=== PATIENT | male | born 1980 | race African-American/Black ===

== ENCOUNTER 2021-11-15 13:40 | Inpatient (IN) | payer MEDICAID, OTHER ==
[2021-11-15] VITALS (8 sets, daily range): BP systolic 81–115; BP diastolic 27–73
[~2021-11-15] VITALS: Ht 170.2 cm; Wt 54.6 kg
[2021-11-15] MEDS ORDERED: ACETAMINOPHEN 325MG TABLET PO STA (14:26)
[2021-11-15] MEDS ORDERED: SODIUM CHLORIDE 0.9% 1000ML BAG (SEPSIS BOLUS) IV ONE (14:30)
[2021-11-15] MEDS ORDERED: ONDANSETRON HCL 4MG/2ML INJ IV ONE (14:30)
[2021-11-15] MEDS ORDERED: METRONIDAZOLE 500 MG PREMIX 100 ML IV ONE (14:45)
[2021-11-15] MEDS ORDERED: NYSTATIN 100,000 UNITS/ML 5ML UDC SSW ONE (14:45)
[2021-11-15 15:38] LABS: HEMATOCRIT. 30.5 % (42.0-52.0); HEMOGLOBIN. 10.3 g/dL (14.0-18.0); MEAN CORPUSCULAR HEMOGLOBIN 23.9 pg (28.0-32.0); MEAN CORPUSCULAR VOLUME 70.9 fL (80.0-94.0); MEAN PLATELET VOLUME 6.7 fl (7.4-10.4); PLATELET 334 x1000/uL (130-400)
[2021-11-15 15:40] LABS: CHLORIDE 93 mEq/L (98-107)
[2021-11-15] MEDS ORDERED: ACETAMINOPHEN 500MG TABLET PO NR (15:45)
[2021-11-15 15:50] LABS: PROTHROMBIN TIME 10.7 sec (9.6-11.0)
[2021-11-15 16:21] LABS: CLARITY URINE CLEAR (CLEAR); COLOR URINE YELLOW (YELLOW); KETONES URINE NEGATIVE (NEGATIVE); LEUKOCYTE ESTERASE URINE NEGATIVE (NEGATIVE); NITRITE URINE NEGATIVE (NEGATIVE); OCCULT BLOOD URINE 2+ (NEGATIVE); PH URINE 6.5 (4.5-8.0); PROTEIN URINE 1+ (NEGATIVE); SPECIFIC GRAVITY URINE 1.009 (1.005-1.030); UROBILINOGEN URINE 0.2 E.U./dL (0.2-1.0)
[2021-11-15] MEDS ORDERED: MAGNESIUM 1 G PREMIX 100 ML IV ONE (16:30)
[2021-11-15] MEDS ORDERED: KCL 20MEQ/100ML PREMIX 100 ML IV ONE (16:30)
[2021-11-15] MEDS ORDERED: POTASSIUM CHLORIDE 20MEQ TABLET SR PO ONE (16:30)
[2021-11-15 17:22] LABS: PLATELET ESTIMATE NORMAL
[2021-11-15] MEDS ORDERED: PIPERACILLIN/TAZ 3.375G PREMIX 50 ML IV ONE (18:00)
[2021-11-15] MEDS ORDERED: VANCOMYCIN 1G PREMIX 200 ML IV ONE (18:00)
[2021-11-15] MEDS ORDERED: HYDROCODONE/ACETAMINOPHEN 5/325MG TABLET PO PRN (18:15)
[2021-11-15] MEDS: SODIUM CHLORIDE 0.9% 1,000 ML IV SCH (18:15)
[2021-11-15] MEDS ORDERED: CLONIDINE 0.1MG TABLET PO PRN (18:15)
[2021-11-15] MEDS ORDERED: IPRATROPIUM/ALBUTEROL 0.5-3(2.5)MG/3ML NEB HHN PRN (18:15)
[2021-11-15] MEDS ORDERED: ONDANSETRON HCL 4MG/2ML INJ IV PRN (18:15)
[2021-11-15] MEDS ORDERED: ACETAMINOPHEN 325MG TABLET PO PRN ×2 (18:15)
[2021-11-15] MEDS ORDERED: NALOXONE HCL 0.4MG/ML VIAL IV PRN (18:30)
[2021-11-15] MEDS ORDERED: DEXT 5%/0.45% NACL 1000ML 1,000 ML IV ONE (18:45)
[2021-11-15] MEDS ORDERED: SODIUM CHLORIDE 0.9% 1,000 ML IV ONE (18:45)
[2021-11-15] MEDS ORDERED: NOREPINEPHRINE 8MG/250ML PMX 250 ML IV ONE (18:45)
[2021-11-15] MEDS ORDERED: DOPAMINE 400MG/250ML PREMIX 250 ML IV PRN (19:30)
[2021-11-15 20:47] LABS: PHOSPHORUS 2.4 mg/dL (2.5-4.9)
[2021-11-16] VITALS (80 sets, daily range): BP systolic 64–152; BP diastolic 21–91
[2021-11-16] MEDS: DOPAMINE 400MG/250ML PREMIX 250 ML IV PRN ×2 (02:40→17:06)
[2021-11-16] MEDS: SODIUM CHLORIDE 0.9% 1,000 ML IV SCH ×2 (02:42→13:29)
[2021-11-16 04:51] LABS: HEMATOCRIT. 29.5 % (42.0-52.0); HEMOGLOBIN. 9.7 g/dL (14.0-18.0); MEAN CORPUSCULAR HEMOGLOBIN 23.6 pg (28.0-32.0); MEAN CORPUSCULAR VOLUME 71.9 fL (80.0-94.0); MEAN PLATELET VOLUME 6.5 fl (7.4-10.4); PLATELET 275 x1000/uL (130-400)
[2021-11-16] MEDS ORDERED: LIDOCAINE HCL/PF 1% 10 MG/ML 5ML VIAL ONE (07:57)
[2021-11-16 09:47] LABS: *AMPHETAMINES SCREEN URINE NEGATIVE (NEGATIVE); *BARBITURATES SCREEN URINE NEGATIVE (NEGATIVE); *BENZODIAZEPINES SCREEN URINE NEGATIVE (NEGATIVE); *COCAINE SCREEN URINE NEGATIVE (NEGATIVE); CANNABINOID URINE SCREEN NEGATIVE (NEGATIVE); METHADONE URINE SCREEN NEGATIVE (NEGATIVE); OPIATES URINE SCREEN NEGATIVE (NEGATIVE); PHENCYCLIDINE URINE SCREEN NEGATIVE (NEGATIVE)
[2021-11-16] MEDS: NOREPINEPHRINE 32 MG in DEXT 5% WATER 218 ML IV PRN (11:12)
[2021-11-16] MEDS: POTASSIUM CHLORIDE INJ 40 MEQ in DEXT 5% WATER 250 ML IV SCH ×3 (11:16→21:50)
[2021-11-16 12:18] LABS: PLATELET ESTIMATE NORMAL
[2021-11-16 13:42] LABS: T4 FREE 0.99 ng/dL (0.76-1.46)
[2021-11-16] MEDS: POTASSIUM CHLORIDE INJ 40 MEQ in SODIUM CHLORIDE 0.9% 1,000 ML IV SCH (14:45)
[2021-11-16 19:56] LABS: TOTAL IRON BINDING CAPACITY 147 ug/dL (250-450)
[2021-11-16 20:29] LABS: FERRITIN 632 ng/mL (22-322)
[2021-11-16 20:41] LABS: VITAMIN B12 SERUM 828 pg/mL (211-911)
[2021-11-16] MEDS ORDERED: CEFTRIAXONE 1 G PREMIX 50 ML IV SCH (23:30)
[2021-11-17] VITALS (96 sets, daily range): BP systolic 77–153; BP diastolic 28–106
[2021-11-17] MEDS: CEFTRIAXONE 1,000 MG in DEXTROSE 5% WATER 50 ML IV SCH ×2 (02:10→23:38)
[2021-11-17] MEDS: SULFAMETHOXAZOLE/TRIMETHOPRIM 800/160MG TABLET PO SCH ×4 (02:10→23:38)
[2021-11-17] MEDS: NOREPINEPHRINE 32 MG in DEXT 5% WATER 218 ML IV PRN (05:32)
[2021-11-17 06:23] LABS: BASOPHILS % 0.5 % (0.0-2.0); EOSINOPHILS % 0.7 % (0.0-5.0); HEMATOCRIT. 29.1 % (42.0-52.0); HEMOGLOBIN. 9.7 g/dL (14.0-18.0); LYMPHOCYTES % 7.1 % (20.0-50.0); MEAN CORPUSCULAR HEMOGLOBIN 23.9 pg (28.0-32.0); MEAN CORPUSCULAR VOLUME 71.6 fL (80.0-94.0); MEAN PLATELET VOLUME 6.6 fl (7.4-10.4); MONOCYTES % 3.1 % (2.0-8.0); NEUTROPHILS % 88.6 % (40.0-76.0); PLATELET 251 x1000/uL (130-400); RED BLOOD CELL COUNT 4.06 mill/uL (4.7-6.1); RED CELL DISTRIBUTION WIDTH 17.9 % (11.6-14.6)
[2021-11-17 06:38] LABS: CHLORIDE 109 mEq/L (98-107)
[2021-11-17 07:58] LABS: BG BASE EXCESS -6.9 mmol/L (-2.0-2.0); BG CARBOXYHEMOGLOBIN 0.3 % (0.5-1.5); BG DEOXYHEMOGLOBIN 3.4 % (0.0-5.0); BG FRACTION INSPIRED OXYGEN 21; BG HCO3 ACT 17.4 mmol/L (22.0-26.0); BG METHEMOGLOBIN 0.3 % (0.0-1.5); BG OXYGEN SATURATION 96.6 % (92.0-98.5); BG PCO2 30.9 mmHg (35.0-45.0); BG PH 7.368 (7.350-7.450); BG PO2 93.6 mmHg (75.0-100.0); BG SAMPLE SITE RIGHT RADIAL; BG TOTAL HEMOGLOBIN 10.7 g/dL (12.0-18.0); BG VENT MODE ROOM AIR
[2021-11-17] MEDS: POTASSIUM CHLORIDE INJ 40 MEQ in DEXT 5% WATER 250 ML IV SCH ×2 (08:23→20:33)
[2021-11-17 09:10] LABS: ABSOLUTE MONOCYTES 0.1 x10E3/uL (0.1-0.9); ABSOLUTE NEUTROPHILS 5.9 x10E3/uL (1.4-7.0); BASOPHILS 0 % (Not Estab.); HEMATOCRIT 30.3 % (37.5-51.0); HEMATOLOGY COMMENT Note: (.); HEMOGLOBIN 9.6 g/dL (13.0-17.7); IMMATURE GRANULOCYTES 1 % (Not Estab.); IMMATURE GRANULOCYTES ABSOLUTE 0.1 x10E3/uL (0.0-0.1); LYMPHOCYTES 14 % (Not Estab.); MEAN CORPUSCULAR HEMOGLOBIN 23.5 pg (26.6-33.0); MEAN CORPUSCULAR HGB CONC. 31.7 g/dL (31.5-35.7); MEAN CORPUSCULAR VOLUME 74 fL (79-97); MONOCYTES 2 % (Not Estab.); NEUTROPHILS 83 % (Not Estab.); PLATELETS 295 x10E3/uL (150-450); RBC 4.08 x10E6/uL (4.14-5.80); WBC 7.1 x10E3/uL (3.4-10.8)
[2021-11-17] MEDS: DOPAMINE 400MG/250ML PREMIX 250 ML IV PRN ×2 (10:00→23:38)
[2021-11-17 10:11] LABS: % CD 3 POS. LYMPHOCYTES 53.1 % (57.5-86.2); % CD 4 POS. LYMPHOCYTES 1.2 % (30.8-58.5); % CD 8 POS. LYMPH 49.2 % (12.0-35.5); ABSOLUTE CD 3 531 /uL (622-2402); ABSOLUTE CD 4 HELPER 12 /uL (359-1519); ABSOLUTE CD 8 SUPPRESSOR 492 /uL (109-897); CD4/CD8 RATIO 0.02 (0.92-3.72)
[2021-11-17] MEDS ORDERED: POTASSIUM PHOS,M-BASIC-D-BASIC 30 MMOL in SODIUM CHLORIDE 0.9% 500 ML IV NR (11:00)
[2021-11-17] MEDS: POTASSIUM CHLORIDE INJ 40 MEQ in SODIUM CHLORIDE 0.9% 1,000 ML IV SCH ×2 (11:20→20:33)
[2021-11-17] MEDS ORDERED: NITA500T2 MT (11:27)
[2021-11-17] MEDS: AZITHROMYCIN 600 MG TABLET PO SCH (13:29)
[2021-11-18] VITALS (79 sets, daily range): BP systolic 77–166; BP diastolic 34–120
[2021-11-18 04:46] LABS: CHLORIDE 116 mEq/L (98-107)
[2021-11-18 04:53] LABS: BASOPHILS % 0.4 % (0.0-2.0); EOSINOPHILS % 2.5 % (0.0-5.0); HEMATOCRIT. 29.8 % (42.0-52.0); HEMOGLOBIN. 9.7 g/dL (14.0-18.0); LYMPHOCYTES % 9.6 % (20.0-50.0); MEAN CORPUSCULAR HEMOGLOBIN 23.7 pg (28.0-32.0); MEAN CORPUSCULAR VOLUME 72.7 fL (80.0-94.0); MEAN PLATELET VOLUME 6.4 fl (7.4-10.4); MONOCYTES % 2.9 % (2.0-8.0); NEUTROPHILS % 84.6 % (40.0-76.0); PLATELET 250 x1000/uL (130-400); RED CELL DISTRIBUTION WIDTH 18.2 % (11.6-14.6)
[2021-11-18 04:56] LABS: AMYLASE 208 IU/L (25-115); PHOSPHORUS 2.6 mg/dL (2.5-4.9)
[2021-11-18] MEDS: SULFAMETHOXAZOLE/TRIMETHOPRIM 800/160MG TABLET PO SCH ×3 (06:37→22:26)
[2021-11-18] MEDS: POTASSIUM CHLORIDE INJ 40 MEQ in SODIUM CHLORIDE 0.9% 1,000 ML IV SCH (06:39)
[2021-11-18] MEDS: SODIUM CHL 0.9% + KCL 20MEQ/L 1,000 ML IV SCH ×2 (10:55→20:50)
[2021-11-18] MEDS: POTASSIUM CHLORIDE 20MEQ TABLET SR PO SCH (10:59)
[2021-11-18] MEDS ORDERED: MAGNESIUM GLUCONATE 500MG TABLET PO SCH (11:00)
[2021-11-18] MEDS: NITAZOXANIDE 500 MG PO SCH ×2 (15:00→22:26)
[2021-11-18] MEDS: NOREPINEPHRINE 32 MG in DEXT 5% WATER 218 ML IV PRN (17:03)
[2021-11-18] MEDS: CEFTRIAXONE 1,000 MG in DEXTROSE 5% WATER 50 ML IV SCH (22:51)
[2021-11-19] VITALS (78 sets, daily range): BP systolic 80–151; BP diastolic 39–102
[2021-11-19 04:33] LABS: CHLORIDE 108 mEq/L (98-107)
[2021-11-19 04:34] LABS: BASOPHILS % 0.4 % (0.0-2.0); EOSINOPHILS % 2.3 % (0.0-5.0); HEMATOCRIT. 27.8 % (42.0-52.0); HEMOGLOBIN. 9.3 g/dL (14.0-18.0); LYMPHOCYTES % 11.5 % (20.0-50.0); MEAN CORPUSCULAR HEMOGLOBIN 23.9 pg (28.0-32.0); MEAN CORPUSCULAR VOLUME 71.5 fL (80.0-94.0); MEAN PLATELET VOLUME 6.3 fl (7.4-10.4); MONOCYTES % 5.3 % (2.0-8.0); NEUTROPHILS % 80.5 % (40.0-76.0); PLATELET 278 x1000/uL (130-400); RED BLOOD CELL COUNT 3.89 mill/uL (4.7-6.1); RED CELL DISTRIBUTION WIDTH 18.6 % (11.6-14.6)
[2021-11-19 04:49] LABS: AMYLASE 146 IU/L (25-115); PHOSPHORUS 2.5 mg/dL (2.5-4.9)
[2021-11-19] MEDS: SODIUM CHL 0.9% + KCL 20MEQ/L 1,000 ML IV SCH ×2 (05:28→15:44)
[2021-11-19] MEDS: SULFAMETHOXAZOLE/TRIMETHOPRIM 800/160MG TABLET PO SCH ×3 (08:30→23:25)
[2021-11-19] MEDS: POTASSIUM CHLORIDE 20MEQ TABLET SR PO SCH (08:37)
[2021-11-19] MEDS: NITAZOXANIDE 500 MG PO SCH ×2 (08:37→20:29)
[2021-11-19] MEDS: MIDODRINE HCL 5MG TABLET PO SCH ×2 (12:25→17:49)
[2021-11-19] MEDS ORDERED: MAGNESIUM 2 G PREMIX 50 ML IV NR (15:00)
[2021-11-19] MEDS ORDERED: POTASSIUM CHLORIDE 20MEQ TABLET SR PO NR (17:00)
[2021-11-19] MEDS: NOREPINEPHRINE 32 MG in DEXT 5% WATER 218 ML IV PRN (17:52)
[2021-11-19] MEDS: CEFTRIAXONE 1,000 MG in DEXTROSE 5% WATER 50 ML IV SCH (23:25)
[2021-11-20] VITALS (97 sets, daily range): BP systolic 65–108; BP diastolic 35–77
[2021-11-20] MEDS: SODIUM CHL 0.9% + KCL 20MEQ/L 1,000 ML IV SCH ×3 (02:20→22:57)
[2021-11-20 05:04] LABS: BASOPHILS % 1.1 % (0.0-2.0); EOSINOPHILS % 6.8 % (0.0-5.0); HEMATOCRIT. 25.5 % (42.0-52.0); HEMOGLOBIN. 8.6 g/dL (14.0-18.0); LYMPHOCYTES % 19.2 % (20.0-50.0); MEAN CORPUSCULAR VOLUME 71.5 fL (80.0-94.0); MEAN PLATELET VOLUME 6.1 fl (7.4-10.4); MONOCYTES % 7.8 % (2.0-8.0); NEUTROPHILS % 65.1 % (40.0-76.0); PLATELET 252 x1000/uL (130-400); RED BLOOD CELL COUNT 3.56 mill/uL (4.7-6.1); RED CELL DISTRIBUTION WIDTH 18.9 % (11.6-14.6)
[2021-11-20 05:22] LABS: CHLORIDE 110 mEq/L (98-107)
[2021-11-20 05:31] LABS: AMYLASE 156 IU/L (25-115); PHOSPHORUS 2.4 mg/dL (2.5-4.9)
[2021-11-20] MEDS: SULFAMETHOXAZOLE/TRIMETHOPRIM 800/160MG TABLET PO SCH ×3 (08:00→22:57)
[2021-11-20] MEDS: MIDODRINE HCL 5MG TABLET PO SCH ×2 (08:01→16:15)
[2021-11-20] MEDS: POTASSIUM CHLORIDE 20MEQ TABLET SR PO SCH (08:01)
[2021-11-20] MEDS: NITAZOXANIDE 500 MG PO SCH ×2 (08:01→21:48)
[2021-11-20] MEDS: DOCUSATE SODIUM 100MG CAPSULE PO PRN (16:16)
[2021-11-20] MEDS ORDERED: POTASSIUM-SODIUM PHOSPHATE POWDER PACKET PO SCH (17:00)
[2021-11-20] MEDS ORDERED: MAGNESIUM 2 G PREMIX 50 ML IV NR (17:30)
[2021-11-20] MEDS: CEFTRIAXONE 1,000 MG in DEXTROSE 5% WATER 50 ML IV SCH (22:57)
[2021-11-21] VITALS (95 sets, daily range): BP systolic 70–140; BP diastolic 40–88
[2021-11-21 05:13] LABS: BASOPHILS % 1.4 % (0.0-2.0); EOSINOPHILS % 7.6 % (0.0-5.0); HEMATOCRIT. 23.4 % (42.0-52.0); HEMOGLOBIN. 7.7 g/dL (14.0-18.0); LYMPHOCYTES % 20.8 % (20.0-50.0); MEAN CORPUSCULAR HEMOGLOBIN 23.6 pg (28.0-32.0); MEAN CORPUSCULAR VOLUME 71.8 fL (80.0-94.0); MEAN PLATELET VOLUME 6.6 fl (7.4-10.4); MONOCYTES % 9.3 % (2.0-8.0); NEUTROPHILS % 60.9 % (40.0-76.0); PLATELET 269 x1000/uL (130-400); RED BLOOD CELL COUNT 3.26 mill/uL (4.7-6.1); RED CELL DISTRIBUTION WIDTH 18.7 % (11.6-14.6)
[2021-11-21 05:32] LABS: CHLORIDE 116 mEq/L (98-107)
[2021-11-21 05:44] LABS: AMYLASE 231 IU/L (25-115); PHOSPHORUS 1.4 mg/dL (2.5-4.9)
[2021-11-21] MEDS: SULFAMETHOXAZOLE/TRIMETHOPRIM 800/160MG TABLET PO SCH ×3 (06:53→23:48)
[2021-11-21] MEDS: NITAZOXANIDE 500 MG PO SCH ×2 (08:03→20:00)
[2021-11-21] MEDS: MIDODRINE HCL 5MG TABLET PO SCH ×2 (08:03→17:31)
[2021-11-21] MEDS: SODIUM CHLORIDE 0.9% 1,000 ML IV SCH ×2 (08:33→23:48)
[2021-11-21] MEDS ORDERED: SODIUM PHOS,M-BASIC-D-BASIC 20 MM in DEXT 5% WATER 243.3333 ML IV NR (10:00)
[2021-11-21] MEDS ORDERED: SODIUM POLYSTYRENE SULFONATE 15 G/60 ML BOT PO NR (10:45)
[2021-11-21] MEDS ORDERED: DIATR MEGLU/DIATRIZOATE SOLN 30ML PO NR (20:00)
[2021-11-22] VITALS (77 sets, daily range): BP systolic 57–159; BP diastolic 22–91
[2021-11-22 05:21] LABS: EOSINOPHILS % 9.4 % (0.0-5.0); HEMATOCRIT. 24.4 % (42.0-52.0); LYMPHOCYTES % 19.9 % (20.0-50.0); MEAN CORPUSCULAR HEMOGLOBIN 23.8 pg (28.0-32.0); MEAN CORPUSCULAR VOLUME 72.5 fL (80.0-94.0); MEAN PLATELET VOLUME 6.5 fl (7.4-10.4); MONOCYTES % 9.5 % (2.0-8.0); NEUTROPHILS % 58.2 % (40.0-76.0); PLATELET 294 x1000/uL (130-400); RED BLOOD CELL COUNT 3.37 mill/uL (4.7-6.1)
[2021-11-22 06:39] LABS: CHLORIDE 111 mEq/L (98-107)
[2021-11-22 06:59] LABS: AMYLASE 439 IU/L (25-115); PHOSPHORUS 2.2 mg/dL (2.5-4.9)
[2021-11-22] MEDS: MIDODRINE HCL 5MG TABLET PO SCH ×2 (08:43→16:50)
[2021-11-22] MEDS: SULFAMETHOXAZOLE/TRIMETHOPRIM 800/160MG TABLET PO SCH ×3 (08:43→22:21)
[2021-11-22] MEDS: NITAZOXANIDE 500 MG PO SCH ×2 (08:44→20:03)
[2021-11-22] MEDS ORDERED: MAGNESIUM 2 G PREMIX 50 ML IV ONE (08:45)
[2021-11-22] MEDS ORDERED: MAGNESIUM 2 G PREMIX 50 ML IV NR (09:00)
[2021-11-22] MEDS ORDERED: MIDODRINE HCL 5MG TABLET PO NR ×2 (09:00)
[2021-11-22] MEDS ORDERED: SODIUM PHOS,M-BASIC-D-BASIC 15 MM in DEXT 5% WATER 245 ML IV NR (10:00)
[2021-11-22] MEDS ORDERED: SODIUM CHLORIDE 0.9% 500 ML IV ONE (12:30)
[2021-11-22] MEDS: NOREPINEPHRINE 32 MG in DEXT 5% WATER 218 ML IV PRN (12:58)
[2021-11-23] VITALS (90 sets, daily range): BP systolic 67–123; BP diastolic 35–87
[2021-11-23 04:25] LABS: BASOPHILS % 0.2 % (0.0-2.0); EOSINOPHILS % 8.8 % (0.0-5.0); HEMATOCRIT. 23.4 % (42.0-52.0); HEMOGLOBIN. 7.6 g/dL (14.0-18.0); LYMPHOCYTES % 21.3 % (20.0-50.0); MEAN CORPUSCULAR HEMOGLOBIN 23.9 pg (28.0-32.0); MEAN CORPUSCULAR VOLUME 73.5 fL (80.0-94.0); MEAN PLATELET VOLUME 6.4 fl (7.4-10.4); MONOCYTES % 11.2 % (2.0-8.0); NEUTROPHILS % 58.5 % (40.0-76.0); PLATELET 287 x1000/uL (130-400); RED BLOOD CELL COUNT 3.18 mill/uL (4.7-6.1); RED CELL DISTRIBUTION WIDTH 19.5 % (11.6-14.6)
[2021-11-23 04:33] LABS: CHLORIDE 113 mEq/L (98-107)
[2021-11-23 04:46] LABS: AMYLASE 506 IU/L (25-115); PHOSPHORUS 2.6 mg/dL (2.5-4.9)
[2021-11-23] MEDS: SULFAMETHOXAZOLE/TRIMETHOPRIM 800/160MG TABLET PO SCH ×3 (06:31→23:51)
[2021-11-23] MEDS: NITAZOXANIDE 500 MG PO SCH ×2 (08:37→21:00)
[2021-11-23] MEDS: MIDODRINE HCL 5MG TABLET PO SCH ×2 (08:38→16:27)
[2021-11-23] MEDS: SODIUM CHLORIDE 0.9% 1,000 ML IV SCH ×2 (15:06)
[2021-11-24] VITALS (86 sets, daily range): BP systolic 58–122; BP diastolic 24–66
[2021-11-24 05:50] LABS: BASOPHILS % 2.9 % (0.0-2.0); EOSINOPHILS % 6.6 % (0.0-5.0); HEMATOCRIT. 22.7 % (42.0-52.0); HEMOGLOBIN. 7.6 g/dL (14.0-18.0); LYMPHOCYTES % 11.1 % (20.0-50.0); MEAN CORPUSCULAR HEMOGLOBIN 24.2 pg (28.0-32.0); MEAN CORPUSCULAR VOLUME 72.4 fL (80.0-94.0); MEAN PLATELET VOLUME 6.7 fl (7.4-10.4); MONOCYTES % 10.6 % (2.0-8.0); NEUTROPHILS % 68.8 % (40.0-76.0); PLATELET 309 x1000/uL (130-400); RED BLOOD CELL COUNT 3.14 mill/uL (4.7-6.1); RED CELL DISTRIBUTION WIDTH 19.2 % (11.6-14.6)
[2021-11-24 06:05] LABS: CHLORIDE 110 mEq/L (98-107)
[2021-11-24 06:30] LABS: AMYLASE 610 IU/L (25-115); PHOSPHORUS 2.5 mg/dL (2.5-4.9)
[2021-11-24] MEDS: SULFAMETHOXAZOLE/TRIMETHOPRIM 800/160MG TABLET PO SCH ×3 (07:46→23:55)
[2021-11-24] MEDS: AZITHROMYCIN 600 MG TABLET PO SCH (08:03)
[2021-11-24] MEDS: MIDODRINE HCL 5MG TABLET PO SCH ×3 (08:04→16:55)
[2021-11-24] MEDS: NITAZOXANIDE 500 MG PO SCH ×2 (08:04→20:45)
[2021-11-24] MEDS: SODIUM CHLORIDE 0.9% 1,000 ML IV SCH ×2 (08:50→23:55)
[2021-11-24] MEDS ORDERED: MAGNESIUM 2 G PREMIX 50 ML IV SCH (10:00)
[2021-11-25] VITALS (15 sets, daily range): BP systolic 84–108; BP diastolic 33–72
[2021-11-25 08:03] LABS: BASOPHILS % 3.5 % (0.0-2.0); HEMOGLOBIN. 7.8 g/dL (14.0-18.0); LYMPHOCYTES % 22.6 % (20.0-50.0); MEAN CORPUSCULAR HEMOGLOBIN 24.9 pg (28.0-32.0); MEAN CORPUSCULAR VOLUME 72.8 fL (80.0-94.0); MEAN PLATELET VOLUME 6.6 fl (7.4-10.4); MONOCYTES % 13.6 % (2.0-8.0); NEUTROPHILS % 54.3 % (40.0-76.0); PLATELET 351 x1000/uL (130-400); RED BLOOD CELL COUNT 3.15 mill/uL (4.7-6.1); RED CELL DISTRIBUTION WIDTH 19.2 % (11.6-14.6)
[2021-11-25 08:05] LABS: CHLORIDE 108 mEq/L (98-107)
[2021-11-25] MEDS: MIDODRINE HCL 5MG TABLET PO SCH ×3 (09:03→16:36)
[2021-11-25] MEDS: SULFAMETHOXAZOLE/TRIMETHOPRIM 800/160MG TABLET PO SCH ×3 (09:04→23:47)
[2021-11-25] MEDS: SODIUM CHLORIDE 0.9% 1,000 ML IV SCH (09:07)
[2021-11-25] MEDS ORDERED: MAGNESIUM 2 G PREMIX 50 ML IV NR (10:00)
[2021-11-25] MEDS: FLUDROCORTISONE ACETATE 0.1MG TABLET PO SCH (16:37)
[2021-11-25] MEDS: MAGNESIUM OXIDE 400MG TABLET PO SCH (21:08)
[2021-11-26] VITALS (12 sets, daily range): BP systolic 87–116; BP diastolic 42–68
[2021-11-26 06:46] LABS: HEMATOCRIT. 21.8 % (42.0-52.0); HEMOGLOBIN. 7.4 g/dL (14.0-18.0); MEAN CORPUSCULAR HEMOGLOBIN 24.7 pg (28.0-32.0); MEAN CORPUSCULAR VOLUME 72.9 fL (80.0-94.0); MEAN PLATELET VOLUME 6.8 fl (7.4-10.4); PLATELET 340 x1000/uL (130-400); RED CELL DISTRIBUTION WIDTH 19.6 % (11.6-14.6)
[2021-11-26 07:01] LABS: CHLORIDE 107 mEq/L (98-107)
[2021-11-26 07:10] LABS: AMYLASE 657 IU/L (25-115); PHOSPHORUS 3.3 mg/dL (2.5-4.9)
[2021-11-26] MEDS: SULFAMETHOXAZOLE/TRIMETHOPRIM 800/160MG TABLET PO SCH ×2 (07:20→15:30)
[2021-11-26] MEDS: FLUDROCORTISONE ACETATE 0.1MG TABLET PO SCH (08:53)
[2021-11-26] MEDS: MAGNESIUM OXIDE 400MG TABLET PO SCH ×2 (08:53→21:43)
[2021-11-26] MEDS: MIDODRINE HCL 5MG TABLET PO SCH ×3 (08:53→18:49)
[2021-11-26 11:50] LABS: PLATELET ESTIMATE NORMAL
[2021-11-27] VITALS (11 sets, daily range): BP systolic 83–115; BP diastolic 28–60
[2021-11-27] MEDS: SULFAMETHOXAZOLE/TRIMETHOPRIM 800/160MG TABLET PO SCH ×4 (00:05→23:13)
[2021-11-27 05:33] LABS: CHLORIDE 106 mEq/L (98-107)
[2021-11-27 05:41] LABS: AMYLASE 601 IU/L (25-115); PHOSPHORUS 2.4 mg/dL (2.5-4.9)
[2021-11-27 06:18] LABS: BASOPHILS % 3.4 % (0.0-2.0); EOSINOPHILS % 3.2 % (0.0-5.0); HEMATOCRIT. 21.7 % (42.0-52.0); HEMOGLOBIN. 7.3 g/dL (14.0-18.0); LYMPHOCYTES % 16.2 % (20.0-50.0); MEAN CORPUSCULAR VOLUME 73.9 fL (80.0-94.0); MEAN PLATELET VOLUME 6.9 fl (7.4-10.4); MONOCYTES % 9.6 % (2.0-8.0); NEUTROPHILS % 67.6 % (40.0-76.0); PLATELET 334 x1000/uL (130-400); RED BLOOD CELL COUNT 2.93 mill/uL (4.7-6.1); RED CELL DISTRIBUTION WIDTH 19.3 % (11.6-14.6)
[2021-11-27] MEDS: DOCUSATE SODIUM 100MG CAPSULE PO PRN (09:36)
[2021-11-27] MEDS: FLUDROCORTISONE ACETATE 0.1MG TABLET PO SCH (09:36)
[2021-11-27] MEDS: MAGNESIUM OXIDE 400MG TABLET PO SCH ×2 (09:36→21:18)
[2021-11-27] MEDS: MIDODRINE HCL 5MG TABLET PO SCH ×3 (09:37→17:32)
[2021-11-27] MEDS ORDERED: MAGNESIUM 4 G PREMIX 100 ML IV NR (10:00)
[2021-11-27] MEDS: POTASSIUM-SODIUM PHOSPHATE POWDER PACKET PO SCH ×2 (13:15→17:32)
[2021-11-27] MEDS: NITAZOXANIDE 500 MG TABLET XX SCH (17:39)
[2021-11-28] VITALS: BP 86/41
[2021-11-28 04:00] VITALS: BP 90/49
[2021-11-28 05:25] LABS: BASOPHILS % 2.1 % (0.0-2.0); EOSINOPHILS % 2.7 % (0.0-5.0); HEMATOCRIT. 24.5 % (42.0-52.0); HEMOGLOBIN. 8.2 g/dL (14.0-18.0); LYMPHOCYTES % 36.7 % (20.0-50.0); MEAN CORPUSCULAR HEMOGLOBIN 24.8 pg (28.0-32.0); MEAN CORPUSCULAR VOLUME 74.3 fL (80.0-94.0); MEAN PLATELET VOLUME 6.8 fl (7.4-10.4); MONOCYTES % 14.2 % (2.0-8.0); NEUTROPHILS % 44.3 % (40.0-76.0); PLATELET 328 x1000/uL (130-400); RED CELL DISTRIBUTION WIDTH 19.9 % (11.6-14.6)
[2021-11-28 05:59] LABS: CHLORIDE 101 mEq/L (98-107)
[2021-11-28 06:19] LABS: AMYLASE 564 IU/L (25-115); PHOSPHORUS 3.8 mg/dL (2.5-4.9)
[2021-11-28 08:00] VITALS: BP 76/58
[2021-11-28] MEDS: MAGNESIUM OXIDE 400MG TABLET PO SCH (08:26)
[2021-11-28] MEDS: FLUDROCORTISONE ACETATE 0.1MG TABLET PO SCH (08:30)
[2021-11-28] MEDS: SULFAMETHOXAZOLE/TRIMETHOPRIM 800/160MG TABLET PO SCH ×2 (08:30→15:20)
[2021-11-28] MEDS: POTASSIUM-SODIUM PHOSPHATE POWDER PACKET PO SCH (08:30)
[2021-11-28] MEDS: NITAZOXANIDE 500 MG TABLET XX SCH (08:30)
[2021-11-28] MEDS: MIDODRINE HCL 5MG TABLET PO SCH ×2 (08:38→12:20)
[2021-11-28] MEDS ORDERED: SODIUM CHLORIDE 0.9% 1000ML BAG (SEPSIS BOLUS) IV ONE (09:45)
[2021-11-28 12:00] VITALS: BP 89/59
[2021-11-28] MEDS ORDERED: MIDO5TAB4 PO (13:10)
[2021-11-28] MEDS ORDERED: MAGN400C MT (13:10)
[2021-11-28] MEDS ORDERED: ZITH6 PO (13:10)
[2021-11-28] MEDS ORDERED: FLOR PO (13:10)
[2021-11-28] MEDS ORDERED: SULF1TAB48 MT (13:10)
[2021-11-28 13:21] VITALS: BP 98/52
[2021-11-29 10:07] LABS: *HIV-1 RNA BY PCR 121350 copies/mL (.)
== END 2021-11-28 15:37 | disposition home or self-care (01) | DRG 892 ==
LOC: ER 13:40 → EDBEDREQSVC 18:12 → EDBEDREQ 18:12 → EDBEDREQTM 18:12 → EDBEDREQSVC 18:44 → MICUSO 22:59 → 3WST 11-24 23:00
PROVIDERS: ADMIT Internal Medicine; ATTEND Internal Medicine
PROC: 02HV33Z Insertion of Infusion Device into Superior Vena Cava, Percutaneous Approach (ICD-10-PCS; principal; 2021-11-16)
PROC: B548ZZA Ultrasonography of Superior Vena Cava, Guidance (ICD-10-PCS; 2021-11-16)
DX: A08.8 Other specified intestinal infections (principal); B20 Human immunodeficiency virus [HIV] disease; N17.9 Acute kidney failure, unspecified; E43 Unspecified severe protein-calorie malnutrition; K85.90 Acute pancreatitis without necrosis or infection, unspecified; R57.1 Hypovolemic shock; R57.8 Other shock; A07.2 Cryptosporidiosis; R64 Cachexia; B37.0 Candidal stomatitis; E87.20 Acidosis, unspecified; Z20.822 Contact with and (suspected) exposure to COVID-19; J15.9 Unspecified bacterial pneumonia; E87.1 Hypo-osmolality and hyponatremia; F15.90 Other stimulant use, unspecified, uncomplicated; D50.9 Iron deficiency anemia, unspecified; E86.0 Dehydration; J84.10 Pulmonary fibrosis, unspecified; D64.9 Anemia, unspecified; E87.6 Hypokalemia; F17.200 Nicotine dependence, unspecified, uncomplicated; E86.1 Hypovolemia; E87.5 Hyperkalemia; F17.210 Nicotine dependence, cigarettes, uncomplicated; R74.01 Elevation of levels of liver transaminase levels; K82.8 Other specified diseases of gallbladder; Z79.899 Other long term (current) drug therapy; Z82.49 Family history of ischemic heart disease and other diseases of the circulatory system; R91.8 Other nonspecific abnormal finding of lung field; Z68.1 Body mass index [BMI] 19.9 or less, adult; Z91.14 Patient's other noncompliance with medication regimen
CPT/HCPCS: 36415; 36573; 36600; 71045; 71250; 74176; 76700; 80048; 80053; 80061; 80076; 80305; 81003; 82150; 82270; 82375; 82533; 82607; 82728; 82746; 82805; 83540; 83550; 83605; 83735; 84100; 84132; 84145; 84439; 84443; 84480; 84484; 85025; 85044; 86359; 86360; 87015; 87045; 87426; 87427; 87449; 87493; 87536; 89055; 93005; 93306; 93970; 97162; 99291; C1725; C9803; J0696; J1265; J2405; J3370; J3475; J3480; J3490; J7030; J7040; J7060; Q9963